=== PATIENT | male | born 1960 | race Caucasian/White ===

== ENCOUNTER 2021-09-22 08:03 | Emergency (ER) | payer MEDICARE, OTHER, SELFPAY ==
[2021-09-22] VITALS (12 sets, daily range): BP systolic 135–154; BP diastolic 73–95; PULSE 72–84; RESP 14–23; TEMP 36.7–37.9; O2SAT 95–99
--- NOTE | ~2021-09-22 | XR_ITS ---
XR chest 1V portable DATE: 09/22/2021 09:26 INDICATION: Productive cough for one day. TECHNIQUE: Portable upright AP views on 09/22/2021 at 0922 hours COMPARISON: 03/07/2009 portable AP chest 09/22/2021 CT abdomen pelvis FINDINGS: Cardiomegaly. Aortic calcification and minimal tortuosity. No hilar or mediastinal enlargem ent. Mild patchy infiltrate is suggested in the right mid and lower lung zones. The left lung appears mikki r. No pleural effusion. 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 Diffuse osteopenia IMPRESSION: Mild patchy infiltrate is suggested in the right mid and lower lung zones Cardiomegaly, aortic atherosclerosis Reviewed, dictated and finalized at [facility].
--- NOTE | ~2021-09-22 | CT_ITS ---
EXAMINATION: CT abdomen pelvis wo con DATE: 09/22/2021 09:52 INDICATION: Low abdominal pain. Melanoma. TECHNIQUE: Computed tomography (CT) of the abdomen and pelvis was performed without intravenous contr ast. Automated exposure control and iterative reconstruction technique were employed. Exam dose: 151 1.79 mGy-cm total exam DLP. COMPARISON: None. FINDINGS: There is patchy infiltrate in the right lower lobe; diffusion diagnosis includes pneumonia, aspiration. The included lower lung zones are otherwise clear. Mild cardiomegaly. Prominent coronary artery calcifications. No pericardial effusion. There are innumerable hepatic cysts, many with wall calcification. There is approximately 7.5 cm mixed isodense and hypodense indeterminate right hepatic mass. No pancreatic mass lesion or calcification or ductal dilatation. No bile duct dilatation. Status post bilateral nephrectomy for history of polycystic kidneys. There are multiple coils within the splenic artery and splenic artery aneurysm which measures up to 6 .6 cm diameter. Normal splenic size. No splenic space-occupying mass lesion small subcapsular fluid c ollection is noted along the medial aspect of the spleen. Normal morphology of the adrenal glands. Abdominal aortic aneurysm measures up to 4.2 cm diameter. There is ectasia of the common iliac arteri es. No intraperitoneal or retroperitoneal or pelvic mass lesion or adenopathy or ascites. Moderate prostate enlargement, occasional prostate calcifications. The urinary bladder is empty Radiopaque sutures in the rectal area; history of hysterectomy and hemorrhoidectomy. Mild diverticulosis of the left colon; no CT evidence of diverticulitis. Normal appendix. Small bilateral fat-containing femoral hernias, left larger than right.. Diffuse osteopenia; no suspicious osteolytic or osteoblastic lesions are noted. L5 lumbosacral vertebra Mild anterior wedging of L2, L1, T8, T9, multiple Schmorl's nodes. Findings may be developmental ([place] euermann's disease) and/or due to compression fractures. IMPRESSION: Status post bilateral nephrectomy; history of polycystic kidneys Numerous hepatic cysts One larger approximately 7.5 cm relatively mixed isodense and hypodense hepatic lesion is noted, poss ibly a complicated cyst. 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 Reviewed, dictated and finalized at [facility]. IMPRESSION: Status post bilateral nephrectomy; history of polycystic kidneys Numerous hepatic cysts One larger approximately 7.5 cm relatively mixed isodense and hypodense hepatic lesion is noted, possibly a complicated cyst. 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
[2021-09-22 09:05] LABS: Basophils Absolute Auto 0.1 K/mm3 (0.0-0.1); Basophils Percent Auto 0.7 % (0.2-1.2); Eosinophils Absolute Auto 0.3 K/mm3 (0-0.3); Eosinophils Percent Auto 4.7 % (0-4.4); Hematocrit 34.5 % (42.0-52.0); Hemoglobin 10.9 g/dL (14.0-18.0); Immature Granulocyte Absolute 0.02 K/mm3 (0.00-0.031); Immature Granulocyte Percent A 0.3 % (0-0.5); Lymphocytes Absolute Auto 0.84 K/mm3 (0.9-3.2); Lymphocytes Percent Auto 12.3 % (18.3-44.2); Mean Corpuscular HGB Conc 31.6 g/dl (32-36); Mean Corpuscular Hemoglobin 30.4 pg (26-34); Mean Corpuscular Volume 96.4 fl (80-100); Mean Platelet Volume 9.3 fl (7.4-10.4); Monocytes Absolute Auto 0.9 K/mm3 (0.1-0.6); Monocytes Percent Auto 13.5 % (2.6-8.5); Neutrophils Absolute Auto 4.7 K/mm3 (1.3-6.7); Neutrophils Percent Auto 68.5 % (45.5-73.1); Platelet Count Result 207 k/mm3 (150-375); Red Blood Count 3.58 M/mm3 (4.6-6.20); Red Cell Distribution Width 15.1 % (11.5-14.5); White Blood Count 6.8 K/mm3 (4.5-10.0)
[2021-09-22 09:16] LABS: Alanine Aminotransferase 14 U/L (4-50); Albumin Level 4.3 g/dL (3.5-5.1); Alkaline Phosphatase 132 U/L (38-126); Anion Gap 8 mmol/L (8-16); Aspartate Amino Transferase 29 U/L (17-59); Bilirubin,Total 0.6 mg/dL (0.2-1.3); Blood Urea Nitrogen 47 mg/dL (9-20); Calcium 9.5 mg/dL (8.4-10.2); Carbon Dioxide 33 mmol/L (22-30); Chloride 93 mmol/L (98-107); Estimated CRCL calculation 11 ml/min; Estimated Glomerular Filt Rate 6; Glucose 132 mg/dL (65-110); Potassium 4.6 mmol/L (3.4-5.0); Sodium 134 mmol/L (137-145)
[2021-09-22 09:17] LABS: INR 2.2; Prothrombin Time 23.4 Seconds (11.1-14.7)
[2021-09-22 09:18] LABS: Partial Thromboplastin Time 54.6 SECONDS (22.3-36.8)
[2021-09-22 09:29] LABS: Lipase 135 U/L (23-300)
--- NOTE | 2021-09-22 09:37 | ED.GENADULT ---
HPI - General Adult General Chief complaint: Unspecified <Renita Chawla PA-C - Last Filed: 09/22/21 11:43> Stated complaint: Fever, Nausea, Back Pain, Blood Stools <Renita Chawla PA-C - Last Filed: 09/22/21 11:43> Time Seen by Provider: 09/22/21 09:11 <Renita Chawla PA-C - Last Filed: 09/22/21 11:43> Source: patient <ALEX Muniz Last Filed: 09/22/21 11:43> Mode of arrival: ambulatory <ALEX Muniz Last Filed: 09/22/21 11:43> Limitations: no limitations <Renita Chawla PA-C - Last Filed: 09/22/21 11:43> History of Present Illness HPI narrative: This is a 61-year-old male that presents to the emergency department for black stools. Reports last night he had several episodes of black tarry stools with blood clots. He is currently on warfarin for history of atrial fibrillation. He also has been having abdominal discomfort, fevers, cough, congestion, and myalgias. His has also recently been sick. He is COVID vaccinated and boosted. He has also had an influenza vaccine. Denies chest pain, shortness of breath, or vomiting. <Renita Chawla PA-C - Last Filed: 09/22/21 11:43> Related Data Home medications: Home Medications Medication Instructions Recorded Confirmed allopurinol 09/22/21 atorvastatin 09/22/21 calcitriol 09/22/21 gabapentin 09/22/21 irbesartan mg 09/22/21 metoprolol succinate PO 09/22/21 ondansetron HCl 09/22/21 pantoprazole PO 09/22/21 sucroferric oxyhydroxide [Velphoro] mg 09/22/21 warfarin 09/22/21 <Renita Chawla PA-C - Last Filed: 09/22/21 11:43> Allergies/adverse reactions: Allergies Allergy/AdvReac Type Severity Reaction Status Date / Time Penicillins Allergy Mild Rash Verified 09/22/21 09:45 hydrocodone AdvReac Headache Verified 09/22/21 09:45 <Renita Chawla PA-C - Last Filed: 09/22/21 11:43> Review of Systems Review of Systems: CONSTITUTIONAL: Denies fever CARDIOVASCULAR: Denies chest pain, or edema. RESPIRATORY: Denies dyspnea. GASTROINTESTINAL: Reports abdominal pain, and diarrhea. Denies nausea or vomiting MUSCULOSKELETAL: Reports myalgia. <Renita Chawla PA-C - Last Filed: 09/22/21 11:43> All systems reviewed & are unremarkable except as noted in HPI and below <Renita Chawla PA-C - Last Filed: 09/22/21 11:43> PMFSH Past Medical History Medical History: Medical History (Updated 09/23/21 @ 00:00 by Og Conn) History of atrial fibrillation History of coronary artery disease History of end stage renal disease History of hypertension <Renita Chawla PA-C - Last Filed: 09/22/21 11:43> Social History Social History: Social History (Updated 09/22/21 @ 09:41 by Renita Chawla PA-C) Smoking status: Former smoker <Renita Chawla PA-C - Last Filed: 09/22/21 11:43> Exam Narrative: GENERAL: Well-appearing, well-nourished, and in no acute distress. HEAD: Normocephalic, atraumatic. EYES: EOMI. CHEST: Clear to auscultation. No respiratory distress. No wheezes rales or rhonchi HEART: Regular rate and rhythm. No murmur heard. Normal peripheral pulses. ABDOMEN: Soft, nondistended, normal active bowel sounds. EXTREMITIES: Normal range of motion. No edema. SKIN: Warm, dry, no rash. NEURO: No focal deficits. Alert and oriented x3. PSYCH: Normal mood and affect RECTAL: No active bleeding. Hemoccult positive <Renita Chawla PA-C - Last Filed: 09/22/21 11:43> Course [employer]/PA Physician Supervision For this patient encounter, I reviewed the [employer] or PA documentation, treatment plan, and medical decision making <Jarrell Sauer MD - Last Filed: 09/23/21 06:52> Consultations Consultation #1: I spoke with his primary on-call, Cindy, about patient and work-up. <Renita Chawla PA-C - Last Filed: 09/22/21 11:43> Date: 09/22/21 <Renita Chawla PA-C - Last Filed: 09/22/21 11:43> Time: 11:15 <SARA Muniz
[2021-09-22] MEDS: ONDANSETRON INJ 4 MG/2 ML VIAL IV PUSH (10:05)
[2021-09-22] MEDS: PANTOPRAZOLE SODIUM IV 40 MG VIAL 80 MG IV PUSH (10:06)
[2021-09-22 10:21] LABS: Influenza A QL RT-PCR Negative (Negative); Influenza B QL RT-PCR Negative (Negative); SARS-CoV-2 RNA PCR Negative
== END 2021-09-22 12:06 | disposition home or self-care (01) ==
PROVIDERS: Physician Assistant; Emergency Provider Emergency Medicine; PCP Internal Medicine
DX: J18.9 Pneumonia, unspecified organism (principal); K92.2 Gastrointestinal hemorrhage, unspecified; I48.91 Unspecified atrial fibrillation; I25.10 Atherosclerotic heart disease of native coronary artery without angina pectoris; I12.0 Hypertensive chronic kidney disease with stage 5 chronic kidney disease or end stage renal disease; N18.6 End stage renal disease; Z20.822 Contact with and (suspected) exposure to COVID-19; Z79.01 Long term (current) use of anticoagulants; Z79.899 Other long term (current) drug therapy; Z88.0 Allergy status to penicillin; Z88.5 Allergy status to narcotic agent; Z87.891 Personal history of nicotine dependence
CPT/HCPCS: 36415; 71045; 74176; 80053; 83605; 83690; 85025; 85610; 85730; 87502; 96365; 96375; 99284; C9113; C9803; J0131; J2405; U0003; U0005